=== PATIENT | female | born 1990 | race Caucasian/White ===

== ENCOUNTER 2017-09-08 11:57 | Emergency (ER) | payer OTHER ==
[~2017-09-08 11:57] MED LIST: BIOT1TAB12 PO; DOCU240C67 PO; FERR-41 PO; HYDR-4309 PO; MULT1CAP59 PO; ONDA4TAB PO; OXYC-373 PO; PNV1TABL11 PO
[2017-09-08] MEDS ORDERED: ESCI20TA38 PO (12:07)
--- NOTE | 2017-09-08 12:11 | ER Report ---
History and Physical Time Seen By MD: 12:08 Hx. of Stated Complaint: pt having l flank pain since Wednesday, when she took otc meds, thinking she had a uti HPI/ROS CHIEF COMPLAINT: Flank pain HISTORY OF PRESENT ILLNESS: This is a 27-year-old female presents to the emergency department for flank pain. Patient states that on Wednesday she developed some left sided flank pain, progressively getting worse with a little bit of dysuria. Patient states she did take Azo which did help with some of the burning sensation with urination however she continues to have the left flank pain now migrating to the right. Patient is unable to sit still on the gurney. Patient appears very uncomfortable. Intermittent nausea. Patient states that she has had intermittent diarrhea as well however this is not unusual for her. Patient denies chest pain or shortness of breath. REVIEW OF SYSTEMS: Respiratory: No cough, no dyspnea. Cardiovascular: No chest pain, no palpitations. Gastrointestinal: No vomiting, no abdominal pain. Musculoskeletal: As above. Genitourinary: As above. Allergies: Coded Allergies: latex (Verified Allergy, Mild, ITCHING , 08/31/16) CONDOM USE ONLY Home Meds Reported Medications Escitalopram Oxalate (LEXAPRO) 20 Mg Tablet, 20 MG PO QDAY, TAB 09/08/17 Multivitamin (MULTIVITAMINS) 1 Each Capsule, 1 EACH PO, CAPSULE 07/12/15 Discontinued Reported Medications Biotin (BIOTIN) 1 Mg Tablet, 1 MG PO DAILY 07/12/15 Discontinued Scripts Ondansetron (ZOFRAN ODT) 4 Mg Tab.rapdis, 4 MG PO Q6H Y for NAUSEA/VOMITING, # 20 TAB.RENATE Prov:EPHRAIM KHANP 07/12/15 Hydrocodone Bit/Acetaminophen (NORCO 5-325 TABLET) 1 Each Tablet, 1 EACH PO Q4- 6H Y for PAIN, #20 TAB Prov:EPHRAIM KHAN 07/12/15 Past Medical/Surgical History The patient has a past medical surgical history of miscarriage, suicide attempt , depression, D&C. Reviewed Nurses Notes: Yes Hx Smoking: No Smoking Status: Former Smoker Exposure to Second Hand Smoke?: Yes (MARAJUANA AND CIGARETTES.) Hx Substance Use Disorder: No Hx Alcohol Use: No Constitutional Vital Sign - Last 24 Hours 09/08/17 09/08/17 09/08/17 09/08/17 12:01 12:05 12:27 12:30 Pulse 90 Resp 20 B/P (MAP) 102/82 (89) 124/85 (98) Pulse Ox 96 09/08/17 09/08/17 09/08/17 09/08/17 12:57 13:00 13:30 13:35 Pulse 84 75 B/P (MAP) 108/59 (75) 117/51 (73) Pulse Ox 96 96 09/08/17 09/08/17 09/08/17 09/08/17 14:00 14:05 14:30 14:35 Pulse 84 80 B/P (MAP) 119/72 (88) 104/58 (73) Pulse Ox 97 96 09/08/17 09/08/17 09/08/17 09/08/17 14:40 15:00 15:10 15:30 Pulse 72 80 B/P (MAP) 110/65 (80) 104/62 (76) Pulse Ox 97 97 09/08/17 15:35 B/P (MAP) 92/52 (65) Intake and Output 09/08/17 09/08/17 09/09/17 15:00 23:00 07:00 Intake Total 1000 ml Balance 1000 ml Physical Exam General Appearance: The patient is alert, has no immediate need for airway protection and no current signs of toxicity. Eyes: Pupils equal and round no injection. Respiratory: Chest is non tender, lungs are clear to auscultation. Cardiac: regular rate and rhythm. Gastrointestinal: Abdomen is round, soft. Mild generalized abdominal pain with deep palpation, no rebound tenderness, no masses, bowel sounds normal. Bilateral CVA tenderness. Musculoskeletal: Neck: Neck is supple and non tender. Extremities have full range of motion and are non tender. Skin: No rashes or lesions. DIFFERENTIAL DIAGNOSIS: After history and physical exam differential diagnosis was considered for abdominal pain in a female including but not limited to ovarian cyst, pelvic inflammatory disease, ovarian torsion, urinary tract infection, and appendicitis. Medical Decision Making Data Points Result Diagram: 09/08/17 1210 09/08/17 1210 Laboratory Hematology Test 09/08/17 00:00 09/08/17 12:10 Urine HCG, Qualitative Negative (NEGATIVE) Red Blood Count 5.66 M/uL (4.17-5.56) Mean Corpuscular Volume 82.1 fL (80.0-96.0) Mean Corpuscular Hemoglobin 27.9 pg (26.0-33.0) Mean Corpuscular Hemoglobin Concent 34.0 g/dL (32.0-36.0) Red Cell Distribution Width 13.7 % (11.5-14.5) Mean Platelet Volume 9.0 fL (7.2-11.1) Neutrophils (%) (Auto) 58.6 % (39.4-72.5) Lymphocytes (%) (Auto) 32.1 % (17.6-49.6) Monocytes (%) (Auto) 7.2 % (4.1-12.4) Eosinophils (%) (Auto) 1.1 % (0.4-6.7) Basophils (%) (Auto) 1.0 % (0.3-1.4) Nucleated RBC Relative Count (auto) 0.1 /100WBC Neutrophils # (Auto) 5.2 K/uL (2.0-7.4) Lymphocytes # (Auto) 2.8 K/uL (1.3-3.6) Monocytes # (Auto) 0.6 K/uL (0.3-1.0) Eosinophils # (Auto) 0.1 K/uL (0.0-0.5) Basophils # (Auto) 0.1 K/uL (0.0-0.1) Nucleated RBC Absolute Count (auto) 0.01 K/uL Peripheral Blood Smear No Y/N Urine Color Yellow Urine Clarity Cloudy Urine pH 7.0 pH (4.8-9.5) Urine Specific [place] 1.021 Urine Protein Negative mg/dL (NEGATIVE) Urine Glucose (UA) Negative mg/dL (NEGATIVE) Urine Ketones Negative mg/dL (NEGATIVE) Urine Blood Negative (NEGATIVE) Urine Nitrite Negative (NEGATIVE) Urine Bilirubin Negative (NEGATIVE) Urine Urobilinogen 2.0 mg/dL (0.2-1.9) Urine Leukocyte Esterase Negative (NEGATIVE) Urine RBC 1 /HPF (0-2/HPF) Urine WBC 2 /HPF (0-5/HPF) Urine Squamous Epithelial Cells Many /LPF (</=FEW) Urine Amorphous Crystals Few /HPF Urine Bacteria Few /HPF (NONE-FEW) Urine Mucus None /HPF (NONE-FEW) Sodium Level 141 mmol/L (137-145) Potassium Level 3.6 mmol/L (3.5-5.0) Chloride Level 102 mmol/L (98-107) Carbon Dioxide Level 27 mmol/L (22-31) Blood Urea Nitrogen 13 mg/dl (7-18) Creatinine 0.90 mg/dl (0.52-1.04) Glomerular Filtration Rate Calc > 60.0 Random Glucose 87 mg/dl (75-110) Calcium Level 9.2 mg/dl (8.4-10.2) Total Bilirubin 0.7 mg/dl (0.2-1.3) Aspartate Amino Transf (AST/SGOT) 36 U/L (0-35) Alanine Aminotransferase (ALT/SGPT) 44 U/L (0-56) Alkaline Phosphatase 101 U/L (0-126) Total Protein 7.8 g/dl (6.3-8.2) Albumin 4.5 g/dl (3.5-5.0) Chemistry Test 09/08/17 00:00 09/08/17 12:10 Urine HCG, Qualitative Negative (NEGATIVE) White Blood Count 8.8 k/uL (4.5-11.0) Red Blood Count 5.66 M/uL (4.17-5.56) Hemoglobin 15.8 g/dL (12.0-16.0) Hematocrit 46.4 % (34.0-47.0) Mean Corpuscular Volume 82.1 fL (80.0-96.0) Mean Corpuscular Hemoglobin 27.9 pg (26.0-33.0) Mean Corpuscular Hemoglobin Concent 34.0 g/dL (32.0-36.0) Red Cell Distribution Width 13.7 % (11.5-14.5) Platelet Count 308 K/uL (150-450) Mean Platelet Volume 9.0 fL (7.2-11.1) Neutrophils (%) (Auto) 58.6 % (39.4-72.5) Lymphocytes (%) (Auto) 32.1 % (17.6-49.6) Monocytes (%) (Auto) 7.2 % (4.1-12.4) Eosinophils (%) (Auto) 1.1 % (0.4-6.7) Basophils (%) (Auto) 1.0 % (0.3-1.4) Nucleated RBC Relative Count (auto) 0.1 /100WBC Neutrophils # (Auto) 5.2 K/uL (2.0-7.4) Lymphocytes # (Auto) 2.8 K/uL (1.3-3.6) Monocytes # (Auto) 0.6 K/uL (0.3-1.0) Eosinophils # (Auto) 0.1 K/uL (0.0-0.5) Basophils # (Auto) 0.1 K/uL (0.0-0.1) Nucleated RBC Absolute Count (auto) 0.01 K/uL Peripheral Blood Smear No Y/N Urine Color Yellow Urine Clarity Cloudy Urine pH 7.0 pH (4.8-9.5) Urine Specific [place] 1.021 Urine Protein Negative mg/dL (NEGATIVE) Urine Glucose (UA) Negative mg/dL (NEGATIVE) Urine Ketones Negative mg/dL (NEGATIVE) Urine Blood Negative (NEGATIVE) Urine Nitrite Negative (NEGATIVE) Urine Bilirubin Negative (NEGATIVE) Urine Urobilinogen 2.0 mg/dL (0.2-1.9) Urine Leukocyte Esterase Negative (NEGATIVE) Urine RBC 1 /HPF (0-2/HPF) Urine WBC 2 /HPF (0-5/HPF) Urine Squamous Epithelial Cells Many /LPF (</=FEW) Urine Amorphous Crystals Few /HPF Urine Bacteria Few /HPF (NONE-FEW) Urine Mucus None /HPF (NONE-FEW) Glomerular Filtration Rate Calc > 60.0 Calcium Level 9.2 mg/dl (8.4-10.2) Total Bilirubin 0.7 mg/dl (0.2-1.3) Aspartate Amino Transf (AST/SGOT) 36 U/L (0-35) Alanine Aminotransferase (ALT/SGPT) 44 U/L (0-56) Alkaline Phosphatase 101 U/L (0-126) Total Protein 7.8 g/dl (6.3-8.2) Albumin 4.5 g/dl (3.5-5.0) Urinalysis Test 09/08/17 00:00 09/08/17 12:10 Urine HCG, Qualitative Negative (NEGATIVE) Urine Color Yellow Urine Clarity Cloudy Urine pH 7.0 pH (4.8-9.5) Urine Specific [place] 1.021 Urine Protein Negative mg/dL (NEGATIVE) Urine Glucose (UA) Negative mg/dL (NEGATIVE) Urine Ketones Negative mg/dL (NEGATIVE) Urine Blood Negative (NEGATIVE) Urine Nitrite Negative (NEGATIVE) Urine Bilirubin Negative (NEGATIVE) Urine Urobilinogen 2.0 mg/dL (0.2-1.9) Urine Leukocyte Esterase Negative (NEGATIVE) Urine RBC 1 /HPF (0-2/HPF) Urine WBC 2 /HPF (0-5/HPF) Urine Squamous Epithelial Cells Many /LPF (</=FEW) Urine Amorphous Crystals Few /HPF Urine Bacteria Few /HPF (NONE-FEW) Urine Mucus None /HPF (NONE-FEW) EKG/Imaging Imaging ABDOMEN/PELVIS WITH CONTRAST HISTORY: evaluate for kidney stone TECHNIQUE: Following administration of IV contrast contiguous axial images acquired through the abdomen/pelvis. Coronal and sagittal reformatting also performed. Dose Lowering Technique One of the following dose optimization techniques was utilized in the performance of this exam: Automated exposure control; adjustment of the mA and/ or kV according to the patient's size; or use of an iterative reconstruction technique. Specific details can be referenced in the facility's radiology CT exam operational policy. CONTRAST: 75 mL Isovue-370 COMPARISON: July 12, 2015 FINDINGS: Visualized lung bases: Negative. Hepatobiliary: Negative. Spleen: Negative. Adrenals: Negative. Pancreas: Negative. Kidneys ureters or bladder: Negative. Genitalia: There is a small amount of free pelvic fluid and suggestion of bilateral ovarian cysts which could be further evaluated by ultrasound. There is a right adnexal hyperdensity which could represent an enhancing vessel although a small amount of hemorrhage not excluded GI: There is no evidence of bowel obstruction or bowel wall thickening. The appendix is visualized and does not appear inflamed. Vessels/spaces/nodes: Negative. Bones/soft tissues: There is a levoconvex curvature to the thoracolumbar spine Additional findings: None pertinent. IMPRESSION: No demonstration of urolithiasis, hydronephrosis or hydroureter Small amount of free pelvic fluid and suggestion of bilateral ovarian cysts which could be further evaluated with ultrasound if of concern. There is a right adnexal hyper density could represent enhancing vessels although small amount hemorrhage not excluded Report Dictated By: Kim Grimm MD at 09/08/2017 1:57 PM Report E-Signed By: Kim Grimm MD at 09/08/2017 2:05 PM SOFIYAN:YAMILA Location: [facility] [place] Patient: Marianela Banuelos : 1990 Visit/Account:[id number] Date of Sevice: 09/08/2017 TRANSVAGINAL NON-OB HISTORY: Left-sided pelvic pain, evaluate for ovarian cyst and torsion TECHNIQUE: Transvaginal ultrasound pelvis. COMPARISON: CT abdomen pelvis performed today FINDINGS: Uterus: ; 8.9 cm length x 4 cm AP x 5.7 cm transverse. Myometrium: Unremarkable. Endometrium: Unremarkable; double thickness 8 mm. Cervix: Nabothian cysts Ovaries: Right - 3.6 x 3.3 x 2.9 cm. There is a 1.9 cm simple cyst in the right ovary Left - 2.9 x 2.3 x 2 cm there are multiple small follicles in the left ovary Blood flow is documented in each ovary by duplex Doppler ultrasound. Adnexa: Grossly unremarkable. Free pelvic fluid: A moderate amount of free pelvic fluid. IMPRESSION: There is a 1.9 cm simple right ovarian cyst and multiple small follicles in the left ovary. No demonstration of ovarian torsion. There is a moderate amount of free pelvic fluid Incidental nabothian cysts in the cervix Report Dictated By: Kim Grimm MD at 09/08/2017 3:15 PM Report E-Signed By: Kim Grimm MD at 09/08/2017 3:20 PM WSN:[email or web address] ED Course/Re-evaluation Clinical Indication for ER IV: Hydration, IV Access ED Course Patient was admitted for him. After physical obtained. Differential diagnoses were considered. An IV was started. A CBC, CMP and UA were obtained. Lab studies unremarkable, and UA. Patient was given a 1 L normal saline bolus. 4 mg IV Zofran, [address] of the abdomen pelvis was negative for urolithiasis, hydronephrosis or hydroureter. There was concern about ovarian cysts. Pelvic ultrasound was positive for a right ovarian cyst, good blood flow , no signs of torsion. I did review these findings with the patient and her mother. Patient was instructed to follow-up with [facility] in next 2-4 days if no improvement. Return to ER for worsening symptoms. Take ibuprofen or Tylenol as needed for pain. Patient was in agreement with this plan of care and discharged home. 09/08/2017 2:20:10 pm I did review the laboratory studies and the CT results with the patient. I did tell them that CT showing possible ovarian cysts that have ruptured, patient would like to proceed with an ultrasound to evaluate. 09/08/2017 3:29:31 pm I did review the pelvic ultrasound with the patient, telling her that she has a right ovarian cyst and that typically these resolved she can take Tylenol as needed for pain, her mother's bedside. Her mother is requesting additional pain medications from patient I did tell her that ibuprofen and Tylenol work very well for the ovarian cysts. The patient is in agreement with this. Decision to Disposition Date: Sep 08, 2017 Decision to Disposition Time: 15:28 Depart Departure Latest Vital Signs Vital Signs Date Time Temp Pulse Resp B/P (MAP) Pulse Ox O2 Delivery O2 Flow Rate FiO2 09/08/17 15:35 92/52 (65) 09/08/17 15:10 80 97 09/08/17 12:01 20 Impression: Primary Impression: Ovarian cyst Condition: Improved Disposition: HOME OR SELF-CARE Referrals: [facility] 10 Days Patient Instructions: Ovarian Cyst (ED) Additional Instructions: Be sure to drink plenty of water. Get plenty of rest. Continue your current medications. There is no sign of infection in the urine or kidneys. Follow up with your primary care provider within one week for reevaluation. Return to the ED for any other concerns or worsening symptoms. Take 800mg Ibuprofen every 8 hours or 1000mg Tylenol every 8 hours as needed for pain. Problem Qualifiers Primary Impression: Ovarian cyst Laterality: right Qualified Codes: N83.201 - Unspecified ovarian cyst, right side BRITTON MCDERMOTTP- Sep 08, 2017 12:10
[2017-09-08] MEDS ORDERED: NS(*) 0.9% 1000 ML BAG 1,000 ML IV ONE (12:17)
[2017-09-08] MEDS ORDERED: MORPHINE 4 MG/ML SDV IVP ONE (12:20)
[2017-09-08] MEDS ORDERED: ONDANSETRON 4 MG/2 ML VIAL IVP ONE (12:20)
[2017-09-08 12:27] LABS: PLATELET COUNT, AUTOMATED 308 K/uL (150-450)
[2017-09-08] MEDS ORDERED: IOPAMIDOL 76% 75 ML INFUS BTL 75 ML ONE (12:32)
--- NOTE | 2017-09-08 14:09 | RADIOLOGY IMAGING REPORT ---
[place] [facility] [place] Marianela Banuelos : 1990 MR: [id number] V: [id number] EXAM DATE: ORDERING PHYSICIAN: BRITTON MCDERMOTT TECHNOLOGIST: Location: [facility] Patient: Marianela Banuelos : 1990 Visit/Account:[id number] Date of Sevice: 09/08/2017 ABDOMEN/PELVIS WITH CONTRAST HISTORY: evaluate for kidney stone TECHNIQUE: Following administration of IV contrast contiguous axial images acquired through the abdom en/pelvis. Coronal and sagittal reformatting also performed. Dose Lowering Technique One of the following dose optimization techniques was utilized in the performance of this exam: Autom ated exposure control; adjustment of the mA and/or kV according to the patient's size; or use of an i terative reconstruction technique. Specific details can be referenced in the facility's radiology C T exam operational policy. CONTRAST: 75 mL Isovue-370 COMPARISON: July 12, 2015 FINDINGS: Visualized lung bases: Negative. Hepatobiliary: Negative. Spleen: Negative. Adrenals: Negative. Pancreas: Negative. Kidneys ureters or bladder: Negative. Genitalia: There is a small amount of free pelvic fluid and suggestion of bilateral ovarian cysts wh ich could be further evaluated by ultrasound. There is a right adnexal hyperdensity which could repr esent an enhancing vessel although a small amount of hemorrhage not excluded GI: There is no evidence of bowel obstruction or bowel wall thickening. The appendix is visualized and does not appear inflamed. Vessels/spaces/nodes: Negative. Bones/soft tissues: There is a levoconvex curvature to the thoracolumbar spine Additional findings: None pertinent. IMPRESSION: No demonstration of urolithiasis, hydronephrosis or hydroureter Small amount of free pelvic fluid and suggestion of bilateral ovarian cysts which could be further ev aluated with ultrasound if of concern. There is a right adnexal hyper density could represent enhanc ing vessels although small amount hemorrhage not excluded Report Dictated By: Kim Grimm MD at 09/08/2017 1:57 PM Report E-Signed By: Kim Grimm MD at 09/08/2017 2:05 PM WSN:[email or web address]
--- NOTE | 2017-09-08 15:23 | RADIOLOGY IMAGING REPORT ---
FACILITY: [facility] PATIENT NAME: Marianela Banuelos : 1990 MR: [id number] V: [id number] EXAM DATE: ORDERING PHYSICIAN: BRITTON MCDERMOTT TECHNOLOGIST: Location: [facility] [place] Patient: Marianela Banuelos : 1990 Visit/Account:[id number] Date of Sevice: 09/08/2017 TRANSVAGINAL NON-OB HISTORY: Left-sided pelvic pain, evaluate for ovarian cyst and torsion TECHNIQUE: Transvaginal ultrasound pelvis. COMPARISON: CT abdomen pelvis performed today FINDINGS: Uterus: ; 8.9 cm length x 4 cm AP x 5.7 cm transverse. Myometrium: Unremarkable. Endometrium: Unremarkable; double thickness 8 mm. Cervix: Nabothian cysts Ovaries: Right - 3.6 x 3.3 x 2.9 cm. There is a 1.9 cm simple cyst in the right ovary Left - 2.9 x 2.3 x 2 cm there are multiple small follicles in the left ovary Blood flow is documented in each ovary by duplex Doppler ultrasound. Adnexa: Grossly unremarkable. Free pelvic fluid: A moderate amount of free pelvic fluid. IMPRESSION: There is a 1.9 cm simple right ovarian cyst and multiple small follicles in the left ovary. No demon stration of ovarian torsion. There is a moderate amount of free pelvic fluid Incidental nabothian cysts in the cervix Report Dictated By: Kim Grimm MD at 09/08/2017 3:15 PM Report E-Signed By: Kim Grimm MD at 09/08/2017 3:20 PM WSN:[email or web address]
[2017-09-08 15:35] VITALS: BP 92/52
== END 2017-09-08 15:44 | disposition home or self-care (01) ==
LOC: ER 12:07
DX: N83.202 Unspecified ovarian cyst, left side (principal); N83.201 Unspecified ovarian cyst, right side; R30.0 Dysuria; Z87.891 Personal history of nicotine dependence; Z79.899 Other long term (current) drug therapy
CPT/HCPCS: 74177; 76830; 81001; 81025; 85025; 96361; 96374; 96375; 99284; J2270; J2405; J7030; Q9967; 82040; 82247; 82310; 82374; 82435; 82565; 82947; 84075; 84132; 84155; 84295; 84450; 84460; 84520

== ENCOUNTER → 2017-10-28 | Outpatient (REF) | payer OTHER ==
[~2017-10-28] MED LIST changes: +ESCI20TA38 PO
[2017-10-28 12:33] LABS: PLATELET COUNT, AUTOMATED 279 K/uL (150-450)
== END ==
PROVIDERS: ATTEND Nurse Practitioner Family
DX: R06.02 Shortness of breath (principal)
CPT/HCPCS: 82040; 82247; 82310; 82374; 82435; 82565; 82947; 84075; 84132; 84155; 84295; 84450; 84460; 84520; 85025; 85379

== ENCOUNTER → 2017-12-18 | Outpatient (CLI) | payer OTHER ==
[~2017-12-18] MED LIST changes: -HYDR-4309 PO; +HYDR-653 PO
--- NOTE | 2017-12-18 12:28 | RADIOLOGY IMAGING REPORT ---
FACILITY: [facility] - [place] PATIENT NAME: Marianela Banuelos : 1990 MR: [id number] V: [id number] EXAM DATE: ORDERING PHYSICIAN: PETER HORTON TECHNOLOGIST: [place] [facility] [place] Patient: Marianela Banuelos : 1990 Visit/Account:[id number] Date of Sevice: 12/18/2017 HEAD W/O CONTRAST HISTORY: Headache. Evaluate for bleed. COMPARISON STUDIES: None. TECHNIQUE: Contiguous axial images were obtained from the skull base to the vertex. One of the following dose optimization techniques was utilized in the performance of this exam: Autom ated exposure control; adjustment of the mA and/or kV according to the patient's size; or use of an i terative reconstruction technique. Specific details can be referenced in the facility's radiology C T exam operational policy. FINDINGS: Hemorrhage: Negative Ventricles / sulci / fissures: Negative Masses / midline shift: Negative White matter and [place]anford matter: No findings of lucency. Extra-axial spaces: Negative Bones/skull base: Negative Visualized mastoid air cells / paranasal sinuses: Normal so far as visualized. Scalp and soft tissues: Negative. IMPRESSION: Normal non-contrast head CT without findings of a mass, bleed, or site of acute infarction. Report Dictated By: Willie Magallanes MD at 12/18/2017 12:23 PM Report E-Signed By: Willie Magallanes MD at 12/18/2017 12:24 PM WSN:[id number]
== END ==
LOC: CT 11:37
PROVIDERS: ATTEND Nurse Practitioner Family
DX: R51 Headache (principal)
CPT/HCPCS: 70450

== ENCOUNTER → 2017-12-22 | Outpatient (REF) | payer OTHER ==
[2017-12-22 11:06] LABS: PLATELET COUNT, AUTOMATED 322 K/uL (150-450)
== END ==
PROVIDERS: ATTEND Nurse Practitioner Family
DX: R51 Headache (principal)
CPT/HCPCS: 82040; 82247; 82310; 82374; 82435; 82565; 82947; 84075; 84132; 84155; 84295; 84450; 84460; 84520; 85025

== ENCOUNTER → 2018-02-28 | Outpatient (CLI) | payer OTHER ==
[~2018-02-28] MED LIST changes: +BUTA1CAP6 PO; +METO-224 PO; +ONDA4TAB9 PO; +PROM-110 PO; +SUMA25TA27 PO; +TOPI-119 PO
== END ==
LOC: LAB 08:09
PROVIDERS: ATTEND Student in an Organized Health Care Education/Training Program
DX: Z34.91 Encounter for supervision of normal pregnancy, unspecified, first trimester (principal)
CPT/HCPCS: 87491; 87591

== ENCOUNTER → 2018-05-04 | Outpatient (CLI) | payer OTHER ==
[~2018-05-04] MED LIST changes: +AZIT-17 PO
[2018-05-04 11:33] LABS: PLATELET COUNT, AUTOMATED 292 K/uL (150-450)
== END ==
LOC: LAB 10:58
PROVIDERS: ATTEND Student in an Organized Health Care Education/Training Program
DX: Z34.91 Encounter for supervision of normal pregnancy, unspecified, first trimester (principal); R82.79 Other abnormal findings on microbiological examination of urine
CPT/HCPCS: 81001; 85025; 86592; 86703; 86762; 86787; 86850; 86900; 86901; 87088; 87340

== ENCOUNTER → 2018-05-26 | Outpatient (CLI) | payer OTHER ==
--- NOTE | 2018-05-26 13:25 | RADIOLOGY IMAGING REPORT ---
FACILITY: [facility] PATIENT NAME: Marianela Banuelos : 1990 MR: [id number] V: [id number] EXAM DATE: ORDERING PHYSICIAN: FREYA HIDALGO TECHNOLOGIST: Location: [facility] Patient: Marianela Banuelos : 1990 Visit/Account:[id number] Date of Sevice: 05/26/2018 EXAMINATION: Ultrasound transabdominal OB > 14 weeks with anatomic evaluation HISTORY: 20 week anatomical survey COMPARISON: None. TECHNIQUE: Transabdominal imaging was performed for assessment of the fetus and maternal pelvic structures. T ransvaginal imaging was performed to evaluate the distance from the inferior edge of the placenta and the cervical os FINDINGS: Placenta: Posterior without previa. The inferior edge of the placenta is 3.4 cm from the cervical os Uterus: Gravid, otherwise normal Cervix: Long and closed.. The cervical length was 4.1 cm Maternal Ovaries: Not visualized. Maternal and other adnexa findings: Not visualized Intrauterine gestations: One. presentation: Variable heart rate: Normal and regular at 1:30 bpm Amniotic fluid index: 12.03 cm Largest amniotic fluid pocket: 4.01 cm Gestational Parameters: BPD: 4.85 cm 20 weeks/ five days, 41% HC: 18.44 cm 20 weeks/ six days, 38% AC: 16.09 cm 21 weeks/ two days, 54% FL: 3.5 to cm 21 weeks/ one days, 50% Average ultrasound age (AUA): 21 weeks/zero days, LEONELA 10/06/2018 Estimated gestational age by LEONELA: 20 weeks/six days, LEONELA 10/07/2018 Estimated weight (EFW): 399 grams +/- 59 grams EFW for LEONELA: 59 percentile Anatomic Survey: Intracranial structures, 4-chamber heart, stomach, kidneys, urinary bladder, spine, 3-vessel cord and cord insertion are unremarkable. Two upper and two lower extremities visualized. Cardiac ventricula r outflow tracts, palate and lips are unremarkable in appearance. IMPRESSION: Single viable fetus in variable presentation with an estimated gestational age by measur ements of 21 weeks and zero days. Estimated gestational age by LMP is 20 weeks and six days. Estimated weight is 399 g which is equivalent to the 59th percentile. The placenta is posterior with the inferior edge 3.4 cm from the cervical os Report Dictated By: Kim Grimm MD at 05/26/2018 1:14 PM Report E-Signed By: Kim Grimm MD at 05/26/2018 1:20 PM WSN:[email or web address]
== END ==
LOC: RAD 09:44
PROVIDERS: ATTEND Student in an Organized Health Care Education/Training Program
DX: Z02.9 Encounter for administrative examinations, unspecified (principal)

== ENCOUNTER → 2018-07-18 | Outpatient (CLI) | payer OTHER ==
[~2018-07-18] MED LIST changes: +DIPH0.5S2 IM
[2018-07-18 10:59] LABS: PLATELET COUNT, AUTOMATED 280 K/uL (150-450)
== END ==
LOC: LAB 08:08
PROVIDERS: ATTEND Student in an Organized Health Care Education/Training Program
DX: Z34.92 Encounter for supervision of normal pregnancy, unspecified, second trimester (principal)
CPT/HCPCS: 36415; 82950; 85025

== ENCOUNTER 2018-07-23 07:17 | Outpatient (CLI) | payer OTHER ==
[~2018-07-23] VITALS: Ht 170.2 cm; Wt 83.9 kg
[2018-07-23 07:35] VITALS: BP 119/58; Ht 170.2 cm; Wt 83.9 kg
[2018-07-23] MEDS ORDERED: NIFEdipine 10 MG CAP PO ONE (07:50)
[2018-07-23] MEDS ORDERED: PREN-127 PO (08:13)
[2018-07-23] MEDS ORDERED: ACET-1966 PO (08:14)
--- NOTE | 2018-07-23 09:00 | RADIOLOGY IMAGING REPORT ---
FACILITY: [facility] PATIENT NAME: Marianela Banuelos : 1990 MR: [id number] V: [id number] EXAM DATE: [id number] ORDERING PHYSICIAN: CATHERINE MCNEAL TECHNOLOGIST: Location: [facility] [place] Patient: Marianela Banuelos : 1990 Visit/Account:[id number] Date of Sevice: 07/23/2018 EXAMINATION: Transvaginal OB Ultrasound For Cervical Measurement 07/23/2018 8:09 AM HISTORY: contractions. LMP 12/31/2017: EGA 29 weeks 1 day, LEONELA 10/07/2018 COMPARISON STUDIES: 05/26/2018 FINDINGS: Single viable IUP in vertex presentation. assessment was not done. With transvaginal imaging th e cervix is closed and measures 3.8 cm in length. No funneling along the internal os. No previa. IMPRESSION: Closed 3.8 cm cervix. Report Dictated By: Roosevelt Sullivan MD at 07/23/2018 8:52 AM Report E-Signed By: Roosevelt Sullivan MD at 07/23/2018 8:55 AM WSN:[id number]
--- NOTE | 2018-07-23 09:39 | History & Physical ---
History of Present Illness EDC per U/S: Oct 07, 2018 Estimated Gestational Age: 29.2 Chief Complaint Contractions History of Present Illness 28yo at 29w2d presents for uterine contractions. She felt back pain throughout the night off and on. No vaginal bleeding. No other concerns. Good FM. She had some PTUCx last that was managed with procardia but she had a CD at term for FTP. History Patient's Blood Type: B Positive Rubella Status: Immune Group B Strep Screen: Unknown Obstetrical History: See PNR Past Medical History: See PNR Allergies: Coded Allergies: latex (Verified Allergy, Mild, ITCHING , 08/31/16) CONDOM USE ONLY Social History: No T/E/D. Family History: Patient reports no known family medical history. Med Rec Home Meds Active Scripts Metoclopramide Hcl (METOCLOPRAMIDE HCL) 10 Mg Tablet, 10 MG PO Q8H for 7 Days, #21 TAB 6 Refills Prov:FREYA HIDALGO DO 02/28/18 Ondansetron Hcl/Pf (ONDANSETRON HCL 4 MG/2 ML VIAL) 4 Mg/2 Ml Vial Prov:FREYA HIDALGO DO 02/21/18 Promethazine Hcl (PROMETHAZINE HCL) 25 Mg Tablet, 12.5 MG PO Q6H PRN for NAUSEA, #30 TAB 2 Refills Prov:FREYA HIDALGO DO 02/21/18 Ondansetron 4 Mg Odt (ONDANSETRON 4 MG ODT) 4 Mg Tab.rapdis, 4 MG PO ONCE PRN for NAUSEA, #30 TAB 3 Refills Prov:FREYA HIDALGO DO 02/21/18 Butalb/Acetaminophen/Caffeine (FIORICET 50-300-40) 1 Each Capsule, 1-2 EACH PO Q4H PRN for HEADACHE, #40 CAPSULE Prov:FREYA HIDALGO DO 12/27/17 Topiramate (TOPAMAX) 25 Mg Tablet, 25 MG PO QHS, #30 TAB 6 Refills Prov:FREYA HIDALGO DO 12/27/17 Reported Medications Acetaminophen (TYLENOL) 325 Mg Tablet, 650 MG PO PRN PRN for PAIN, TAB 07/23/18 Vits W-Ca,Fe,Fa(<1MG) ( VITAMINS) 1 Each Tablet, 1 EACH PO DAILY, TAB 07/23/18 Sumatriptan Succinate (SUMATRIPTAN SUCCINATE) 25 Mg Tablet, 25 MG PO ONCE 12/27/17 Review of Systems Constitutional: No Fever Neurological: No Syncope Eyes: No Vision Change Cardiovascular: No Chest Pain Respiratory: No Shortness of Breath Gastrointestinal: No Nausea, No Vomiting, No Diarrhea Genitourinary: No Dysuria Musculoskeletal: No Pain Psychiatric: No Depression Exam General Exam Vital Signs Vital Signs Date Time Temp Pulse Resp B/P (MAP) Pulse Ox O2 Delivery O2 Flow Rate FiO2 07/23/18 07:35 98.4 86 18 119/58 (78) 95 Room Air General Apperance: Alert/Awake/No Acute Distress Neuro: No Gross deficits Respiratory: No Respiratory Distress, Clear to Auscultation Abdomen: Soft, Non-Tender, Non-Distended, Gravid - Non-Tender : Normal Musculoskeletal: No Weakness/Pain Extremities: No Cyanosis,Clubbing or Edema Integumentary: Skin Intact without Lesions or Rash Psychological: Alert & Oriented X3, Appropriate Mood & Affect Uterine Contractions(Q min): 5 Uterine Contraction Strength: Mild UC Resting Tone: Soft Fetus FHT Category: I Medical Decision Making Imaging Ultrasound/Imaging PATIENT NAME: Marianela Banuelos : 1990 MR: [id number] V: [id number] EXAM DATE: [id number] ORDERING PHYSICIAN: CATHERINE MCNEAL TECHNOLOGIST: Location: [facility] Patient: Marianela Banuelos : 1990 Visit/Account:[id number] Date of Sevice: 07/23/2018 EXAMINATION: Transvaginal OB Ultrasound For Cervical Measurement 07/23/2018 8:09 AM HISTORY: contractions. LMP 12/31/2017: EGA 29 weeks 1 day, LEONELA 10/07/2018 COMPARISON STUDIES: 05/26/2018 FINDINGS: Single viable IUP in vertex presentation. assessment was not done. With transvaginal imaging the cervix is closed and measures 3.8 cm in length. No funneling along the internal os. No previa. IMPRESSION: Closed 3.8 cm cervix. Report Dictated By: Roosevelt Sullivan MD at 07/23/2018 8:52 AM Report E-Signed By: Roosevelt Sullivan MD at 07/23/2018 8:55 AM Assessment and Plan Problems: (1) contractions Assessment & Plan: 28yo at 29w2d presents for uterine contractions. They have settled down with one dose of Procardia. Her cervix is closed and 3.8cm on ultrasound. Will send home with procardia if she needs it, but encouraged her to try rest and hydration prior to medication. Questions addressed. Discussed follow up. (2) 29 to 30 weeks gestation of CATHERINE MCNEAL MD Jul 23, 2018 09:33
[2018-07-23] MEDS ORDERED: NIFE10CA38 PO (10:00)
== END 2018-07-23 10:10 | disposition home or self-care (01) ==
LOC: L&D 07:17 → OB 07:17 → UNDOADMOB 07:17 → UNDODISOB 10:10 → L&D 10:10 → EDSTATUS 13:16
PROVIDERS: ATTEND Obstetrics & Gynecology
DX: O47.03 False labor before 37 completed weeks of gestation, third trimester (principal); Z3A.29 29 weeks gestation of pregnancy
CPT/HCPCS: 76817; 81001; 99213; G0378; G0379

== ENCOUNTER → 2018-09-12 | Outpatient (CLI) | payer OTHER ==
[2018-07-23 07:35] VITALS: BMI 29.0
[~2018-09-12] MED LIST changes: +ACET-1966 PO; +NIFE10CA38 PO; +PREN-127 PO
== END ==
LOC: LAB 11:11
PROVIDERS: ATTEND Student in an Organized Health Care Education/Training Program
DX: Z36.85 Encounter for antenatal screening for Streptococcus B (principal)
CPT/HCPCS: 87081